=== PATIENT | male | born 1950 | race Caucasian/White ===

== ENCOUNTER → 2017-04-25 | Outpatient (CLI) | payer MEDICARE, OTHER | LOC: ZCOL.LAB 09:43 | DX: J32.9 Chronic sinusitis, unspecified (principal) ==

== ENCOUNTER → 2017-09-20 | Outpatient (CLI) | payer MEDICARE, OTHER | LOC: ZCOL.LAB 14:11 | DX: J32.0 Chronic maxillary sinusitis (principal) ==